=== PATIENT | female | born 2000 | race Hispanic/Latino ===

== ENCOUNTER 2025-01-31 18:00 | Emergency (ER) | payer BC ==
[~2025-01-31] VITALS: Ht 154.9 cm; Wt 72.6 kg
[2025-01-31 18:02] VITALS: BP 144/90; PULSE 89; RESP 18; TEMP 98.2; O2SAT 98
[2025-01-31 18:46] LABS: IMMATURE GRANULOCYTE ABSOLUTE 0.06 K/uL (0-1); NUCLEATED RED BLOOD CELLS 0.0 % (0.0-0.19); PLATELET COUNT (AUTO) 412 K/uL (130-400); RED BLOOD CELL COUNT(AUTO) 4.62 MIL/uL (4.00-5.50); RED CELL DISTRIBUTION WIDTH 13.6 % (11.0-15.5); WHITE BLOOD COUNT (AUTO) 14.7 K/uL (4.8-10.8)
[2025-01-31 18:55] LABS: CREATININE 0.5 mg/dL (0.5-1.0); GLOMERULAR FILTR. RATE CALC 135.0 mL/min (>90); GLUCOSE,RANDOM 94.0 mg/dL (70-105); SODIUM SERUM 142.0 mmol/L (136-145); UREA NITROGEN, BLOOD 11.0 mg/dL (7-18)
[2025-01-31 18:58] LABS: APPEARANCE,URINE CLEAR (CLEAR); GLUCOSE, URINE (UA) NEGATIVE (NEGATIVE); LEUKOCYTE ESTERASE ,URINE NEGATIVE Leu/uL (NEGATIVE); NITRATE,URINE NEGATIVE (NEGATIVE); OCCULT BLOOD,URINE NEGATIVE (NEGATIVE)
[2025-01-31 18:59] LABS: ASPARTATE AMINOTRANSFERASE 28.0 U/L (10-37); TOTAL PROTEIN, SERUM 8.0 g/dL (6.0-8.3)
[2025-01-31 19:01] LABS: HCG,QUALITATIVE URINE NEGATIVE (NEGATIVE)
[2025-01-31 19:06] LABS: SQUAMOUS EPITHELIAL CELL,UR FEW /HPF (0-2)
[2025-01-31] MEDS ORDERED: IOHEXOL-350 75 ML VIAL IV ONE (19:20)
--- NOTE | 2025-01-31 20:34 | HMCIMG ---
EXAM: CT abdomen and pelvis without contrast HISTORY: Pain TECHNIQUE: Multiple axial CT slices through the abdomen and pelvis without contrast. Coronal and sagittal reconstructions were performed. CT scans are performed using one of these three dose reduction techniques: automated exposure control, adjustment of the mA and/or kV according to patient size, or use of iterative reconstruction techniques. COMPARISON: None FINDINGS: Lung bases are clear. Liver, gallbladder, spleen, pancreas, adrenal glands are normal. Punctate calcifications seen in the kidneys bilaterally. No significant hydronephrosis. No free fluid. No pneumoperitoneum. No bowel dilatation. Mild amount of stool seen in the colon appendix is unremarkable. Few small mesenteric lymph nodes. No suspicious osseous lesions. IMPRESSION: Punctate renal calculi. No hydronephrosis. /[place]
--- NOTE | 2025-01-31 20:39 | ERN ---
General Chief Complaint: Abdominal Pain Stated Complaint: ABD PAIN Time Seen by MD: 18:05 Time Seen by Midlevel: 18:05 Source: patient History of Present Illness Initial Comments 24-year-old female who presents to the emergency department due to abdominal pain onset three days. Patient reports nausea but denies any vomiting, diarrhea, constipation, dysuria, fevers or further associated symptoms. Denies significant past medical history. Allergies: Coded Allergies: iodine (Unverified Allergy, Unknown, 01/31/25) montelukast (Unverified Allergy, Unknown, 01/31/25) Past Medical History Past Medical History: No Pertinent History Past Surgical History: None ROS Dictation Constitutional: Negative for fever,chills, and weight loss Eyes: Negative for injury, pain,redness, and discharge ENT: Negative for injury,pain or swelling Cardiovascular: Negative for chest pain, palpitations, and edema Respiratory: Negative for shortness of breath, cough, and wheezing, Abdomen/GI: Positive for abdominal pain, nausea Negative for vomiting, diarrhea, and constipation Back: Negative for injury and pain : Negative for painful urination, bleeding or discharge MS/Extremity: Negative for injury and deformity Skin: Negative for rash, and discoloration Neuro: Negative for headache, weakness, numbness, tingling, and seizure Psych: Negative for suicide ideation, homicidal ideation, and hallucinations Physical Exam Physical Exam Dictation General: awake, alert, no acute distress Head/Face: Normocephalic, atraumatic Eyes: PERRL, EOMI, normal conjunctiva ENT: oral cavity clear, oral mucosa moist Neck: Supple, normal range of motion Cardiovascular: RRR, normal S1/S2 Respiratory: CTAB, no respiratory distress, no rales or wheezes Abdomen: Soft, non-tender, non-distended, no guarding or rebound. Skin: Warm, dry, normal turgor, no rash MS/Extremity: Pulses equal, no cyanosis, neurovascular intact, FROM Neuro: COAx4, GCS 15, strength 5/5, CN 2-12 intact, normal cerebellar exam, normal gait Psych: Normal behavior, mood, and affect normal Results Laboratory and Microbiology Lab and Micro Result Laboratory Tests Test 01/31/25 10:30 01/31/25 18:35 Urine Color LIGHT-YELLOW (YELLOW) Urine Appearance CLEAR (CLEAR) Urine pH 6.5 (5.0-8.0) Urine Specific [place] 1.019 (1.001-1.031) Urine Protein NEGATIVE mg/dL (NEGATIVE) Urine Glucose (UA) NEGATIVE mg/dL (NEGATIVE) Urine Ketones NEGATIVE mg/dL (NEGATIVE) Urine Occult Blood NEGATIVE (NEGATIVE) Urine Nitrate NEGATIVE (NEGATIVE) Urine Bilirubin NEGATIVE mg/dL (NEGATIVE) Urine Urobilinogen 0.2 mg/dL (0.2-1.0) Urine Leukocyte Esterase NEGATIVE Stanley/uL Urine RBC None /HPF (0-1) Urine WBC 2-5 /HPF (0-1) H Urine Squamous Epithelial Cells FEW /HPF (0-2) Urine Bacteria None /HPF (None Seen) Urine HCG, Qualitative NEGATIVE (NEGATIVE) White Blood Count 14.7 K/uL (4.8-10.8) H Red Blood Count 4.62 MIL/uL (4.00-5.50) Hemoglobin 12.9 g/dL (12.0-16.0) Hematocrit 38.9 % (36-48) Mean Corpuscular Volume 84.2 fL (79-99) Mean Corpuscular Hemoglobin 27.9 pg (27.0-33.0) Mean Corpuscular Hemoglobin Concent 33.2 g/dL (32.0-36.0) Red Cell Distribution Width 13.6 % (11.0-15.5) Platelet Count 412 K/uL (130-400) H Mean Platelet Volume 9.7 fL (7.5-10.5) Immature Granulocyte % (Auto) 0.4 % (0-1) Neutrophils (%) (Auto) 72.6 % (40.0-77.0) Lymphocytes (%) (Auto) 19.3 % (21.0-51.0) L Monocytes (%) (Auto) 6.2 % (3.0-13.0) Eosinophils (%) (Auto) 1.0 % (0.0-8.0) Basophils (%) (Auto) 0.5 % (0.0-5.0) Neutrophils # (Auto) 10.7 K/uL (1.8-7.7) H Lymphocytes # (Auto) 2.8 K/uL (1.0-4.8) Monocytes # (Auto) 0.9 K/uL (0.1-1.0) Eosinophils # (Auto) 0.14 K/uL (0.00-0.70) Basophils # (Auto) 0.08 K/uL (0.00-0.20) Absolute Immature Granulocyte (auto 0.06 K/uL (0-1) Nucleated Red Blood Cells 0.0 % (0.0-0.19) Sodium Level 142 mmol/L (136-145) Potassium Level 3.8 mmol/L (3.5-5.1) Chloride Level 103 mmol/L (101-111) Carbon Dioxide Level 31 mmol/L (21-32) Blood Urea Nitrogen 11 mg/dL (7-18) Creatinine 0.5 mg/dL (0.5-1.0) Glomerular Filtration Rate Calc 135 mL/min (>90) Random Glucose 94 mg/dL (70-105) Total Calcium 9.1 mg/dL (8.5-10.1) Total Bilirubin 0.5 mg/dL (0.2-1.0) Direct Bilirubin 0.1 mg/dL (0.0-0.3) Aspartate Amino Transf (AST/SGOT) 28 U/L (10-37) Alanine Aminotransferase (ALT/SGPT) 53 U/L (12-78) Alkaline Phosphatase 101 U/L (50-136) Total Protein 8.0 g/dL (6.0-8.3) Albumin 3.8 g/dL (3.5-5.0) Lipase 28 U/L (16-77) Labs Reviewed?: Yes EKG/XRAY/US/CT/MRI CT Scan Comment REASON: PAIN ORDERING PHYSICIAN: VIDHI LESLIE MD PROCEDURE: ABD PEL WO - CT ABDOMEN/PELVIS W/O CONTRAST EXAM: CT abdomen and pelvis without contrast HISTORY: Pain TECHNIQUE: Multiple axial CT slices through the abdomen and pelvis without contrast. Coronal and sagittal reconstructions were performed. CT scans are performed using one of these three dose reduction techniques: automated exposure control, adjustment of the mA and/or kV according to patient size, or use of iterative reconstruction techniques. COMPARISON: None FINDINGS: Lung bases are clear. Liver, gallbladder, spleen, pancreas, adrenal glands are normal. Punctate calcifications seen in the kidneys bilaterally. No significant hydronephrosis. No free fluid. No pneumoperitoneum. No bowel dilatation. Mild amount of stool seen in the colon appendix is unremarkable. Few small mesenteric lymph nodes. No suspicious osseous lesions. IMPRESSION: Punctate renal calculi. No hydronephrosis. /[place] DICTATED BY: SREEDHAR RICKETTS MD DATE: 01/31/252132 MDM MDM: Differential diagnosis: Appendicitis, UTI, , gastroenteritis Rationale: 24-year-old female who presents to the emergency department due to abdominal pain onset three days. Patient reports nausea but denies any vomiting, diarrhea, constipation, dysuria, fevers or further associated symptoms. Denies significant past medical history. Per physical examination patient is in no acute distress, abdomen is soft nontender. Labs obtained indicating leukocytosis of 14.7, chemistries within normal limits, LFTs within normal limits. UA negative for urinary tract infection, and urine hCG negative. Patient received ketorolac and Zofran in the ED. CT abdomen and pelvis obtained indicating point take renal calculi and a few small mesenteric lymph nodes otherwise no acute findings. Pelvic ultrasound obtained with bilateral blood flow to both ovaries and no acute findings. Patient continue with pain therefore morphine was administered. Patient was educated on findings and diagnosis. Advised to follow up with PCP. Return to the emergency department if any worsening symptoms. Patient verbalized understanding. Patient stable for discharge. There are no social concerns with this patient. I independently interpreted the test that were performed, results were reviewed by me and considered findings on radiology if ordered. Medical management and examination interpretation discussions were had by me with other qualified healthcare professionals as indicated for the patient's care. ED Course Orders Procedure Category Date Status Time Cbc With Differential LAB 01/31/25 Complete 18:16 Basic Metabolic Panel LAB 01/31/25 Complete 18:16 Urinalysis LAB 01/31/25 Complete W/Microscopic 18:16 Hepatic Function Panel LAB 01/31/25 Complete 18:16 Lipase LAB 01/31/25 Complete 18:16 ,Urine Test LAB 01/31/25 Complete 18:16 Ondansetron Odt 4mg PHA 01/31/25 Complete Tab (Zofran 4mg Odt) 19:30 Ketorolac PHA 01/31/25 Complete Tromethamine 15mg/Ml 19:30 Iohexol (Omnipaque) PHA 01/31/25 Complete 19:20 Ct Abdomen/Pelvis W/O CT 01/31/25 Resulted Contrast 19:20 Morphine 2mg Syg PHA 01/31/25 Complete (Morphine 2mg Syg) 21:00 Us Pelvic Non-Ob Comp US 01/31/25 Taken 20:46 Current Medications Medications (Trade) Dose Ordered Sig/Zakiya Route PRN Reason Start Time Stop Time Status Last Admin Dose Admin Iohexol (Omnipaque) 75 ml STK-MED ONCE IV 01/31/25 19:20 01/31/25 19:20 DC Ketorolac Tromethamine (toRADol) 15 mg ONCE ONCE IM 01/31/25 19:30 01/31/25 19:31 DC 01/31/25 19:42 Morphine Sulfate (morPHINE 2MG SYG) 2 mg ONCE ONCE IVP 01/31/25 21:00 01/31/25 21:01 DC 01/31/25 21:37 Ondansetron HCl (zoFRAN 4MG ODT) 4 mg ONCE ONCE SL 01/31/25 19:30 01/31/25 19:31 DC 01/31/25 19:42 Vital Signs Date Time Temp Pulse Resp B/P (MAP) Pulse Ox O2 Delivery O2 Flow Rate FiO2 01/31/25 18:02 98.2 89 18 144/90 98 DX & DISP Disposition: Discharge Departure Impression: Primary Impression: Renal calculi Additional Impression: Lymphadenitis Condition: Stable Additional Instructions: Discharge home. Rest. Follow up with primary care in 24 hours. Return to the ER for any acute changes or worsening symptoms. If any medications were prescribed take as directed. Okay to continue home medications unless otherwise discussed during your visit in the emergency room today. Patient was also advised to follow-up with primary care physician in 1 to 2 days for continued monitoring. Referrals: SELF,REFERRAL (PCP) I performed the substantive portion of the visit. I have reviewed and personally made and approve the management plan that is documented in the notes by myself or the DEB. I acknowledge full responsibility for the patient's management plan. NUBIA VASQUEZ Jan 31, 2025 20:39
--- NOTE | 2025-01-31 22:55 | HMCIMG ---
EXAM: US Pelvis, Complete Transabdominal COMPARISON: None provided. CLINICAL HISTORY: RLQ pain. TECHNIQUE: Complete transabdominal pelvic ultrasound with image documentation FINDINGS: UTERUS: The uterus is normal in size, shape, and texture. It measures 6.3 x 2 x 3.9 cm. The endometrial thickness measures 11 mm. RIGHT OVARY: The right ovary measures 3 x 1.6 x 1.6 cm. Normal Doppler flow. No masses identified. LEFT OVARY: The left ovary measures 2.7 x 1.5 x 2.1 cm. Normal Doppler flow. No masses identified. Cul-de-sac (Pouch of Migel): No free fluid. IMPRESSION: No acute process is evident. /[place]
== END 2025-01-31 21:52 | disposition home or self-care (01) ==
LOC: EDH 18:00
DX: N20.0 Calculus of kidney (principal); I88.9 Nonspecific lymphadenitis, unspecified; Z88.8 Allergy status to other drugs, medicaments and biological substances
CPT/HCPCS: 99285; 74176; 96374; 76856; 80076; 80048; 83690; 85025; 81001; 81025; 36415; 96372; J1885; J2270; Q9967